=== PATIENT | female | born 1970 ===

== ENCOUNTER → 2022-02-22 14:47 | Outpatient (CLI) | payer OTHER, SELFPAY ==
--- NOTE | ~2022-02-22 | CT_ITS ---
EXAMINATION: CT diagnostic chest w con DATE: 02/22/2022 16:06 INDICATION: Shortness of breath and chest pain TECHNIQUE: Transaxial computed tomographic images of the chest were obtained after the administration of 75 cc of Omnipaque 350 intravenous contrast. The dose-length product (DLP) was 342.11 mGy-cm. Ite rative reconstruction was used. COMPARISON: None FINDINGS: There is a 1.6 x 1.1 cm groundglass nodule of the right middle lobe on image 67. There is a 4 mm groundglass nodule of the left upper lobe on image 41. Neither demonstrate a solid component. N o pleural effusion or pneumothorax. No pathologically enlarged thoracic lymph nodes are identified. T he heart size is normal. There is mild thoracic spondylosis. IMPRESSION: 1. Groundglass nodules of the lungs without solid component. Follow-up low-dose CT in three months is recommended. Reviewed, dictated and finalized at location B.
[2022-02-22 15:15] LABS: Estimated Glomerular Filt Rate > 60
== END ==
DX: R07.9 Chest pain, unspecified (principal); R91.8 Other nonspecific abnormal finding of lung field
CPT/HCPCS: 71260; Q9967